=== PATIENT | male | born 1980 | race Caucasian/White ===

== ENCOUNTER 2018-07-12 11:42 | Emergency (ER) | payer OTHER ==
[~2018-07-12] VITALS: Ht 172.7 cm; Wt 114.8 kg
[2018-07-12 11:46] VITALS: BP 150/96
--- NOTE | 2018-07-12 12:22 | NUR ---
pt back from imaging.
--- NOTE | 2018-07-12 14:04 | NUR ---
Patient/Caregiver given discharge instructions and they have confirmed that they understand the instructions. Patient ambulatory with steady gait. pt left with all personal belongings.
== END 2018-07-12 14:06 | disposition home or self-care (01) ==
LOC: ED 13:42
DX: S13.4XXA Sprain of ligaments of cervical spine, initial encounter (principal); S23.3XXA Sprain of ligaments of thoracic spine, initial encounter; S33.5XXA Sprain of ligaments of lumbar spine, initial encounter; M25.521 Pain in right elbow; Z87.891 Personal history of nicotine dependence; V49.49XA Driver injured in collision with other motor vehicles in traffic accident, initial encounter; Y93.89 Activity, other specified; Y92.89 Other specified places as the place of occurrence of the external cause; Y99.8 Other external cause status
CPT/HCPCS: 72072; 72110; 72125; 99284